=== PATIENT | female | born 1930 | race Caucasian/White ===

== ENCOUNTER 2016-06-27 19:40 | Emergency (ER) | payer MEDICARE, OTHER ==
[2015-07-04 05:56] VITALS: BMI 41.2
[~2016-06-27 19:40] MED LIST: DYAZIDE 37.5/251 CAP PO; DYRENIUM50 MG PO; FOLTX TABLET1 EACH PO; GLUCOPHAGE500 MG PO; HYDROCODONE-APA1 TAB PO; KLOR-CON M2020 MEQ; LEVOXYL75 MCG PO; LISINOPRIL5 MG; MOBIC7.5 MG; NEURONTIN 300300 MG; NOVOLIN 70/30 110 ML; PRAVACHOL20 MG; RESTORIL15 MG PO; TOPROL XL50 MG PO; ZOFRAN ODT4 MG/UDTAB; ZOFRAN ODT4 MG/UDTAB PO
[2016-06-27 21:24] LABS: BASOPHILS 1.1 % (0.0-2.0); EOSINOPHILS 4.2 % (0-7); HEMATOCRIT 42.9 % (36.0-48.0); HEMOGLOBIN 13.6 g/dL (12-16); IMMATURE GRANULOCYTES 0.1 % (0-5); LYMPHOCYTES 20.4 % (15-50); MCHC 31.7 g/dL (31.0-37.0); MCV 94.5 fL (80.0-100.0); MEAN PLATELET VOLUME 10.5 fL (7.4-10.4); MONOCYTES 7.9 % (2-11); NEUTROPHILS 66.3 % (40-80); PLATELET COUNT 236 10x3/uL (130-400); RBC 4.54 10x6/uL (4.00-5.40); RDW 14.9 % (11.5-14.5); WBC 7.6 10x3/uL (4.8-10.8)
[2016-06-27 21:31] LABS: ALBUMIN 3.6 g/dL (3.4-5.0); ANION GAP 11.1 mmol/L (8-16); BILIRUBIN - TOTAL 0.3 mg/dL (0.2-1.3); CALCIUM 9.8 mg/dL (8.5-10.1); CARBON DIOXIDE 29.1 mmol/L (21.0-32.0); CREATININE - SERUM 1.2 mg/dL (0.6-1.3); POTASSIUM - SERUM 4.2 mmol/L (3.5-5.1); PROTEIN - SERUM 7.2 g/dL (6.4-8.2)
[2016-06-27 21:40] LABS: THYROID STIMULATING HORMONE 4.3 uIU/mL (0.36-3.74)
[2016-06-27 22:05] LABS: APPEARANCE CLEAR (CLEAR); BILIRUBIN NEGATIVE (NEGATIVE); COLOR YELLOW (YELLOW); GLUCOSE NEGATIVE (NEGATIVE); KETONE NEGATIVE (NEGATIVE); LEUKOCYTE ESTERASE NEGATIVE (NEGATIVE); NITRITE NEGATIVE (NEGATIVE); PROTEIN NEGATIVE (NEGATIVE); SPECIFIC GRAVITY 1.015 (1.005-1.020); UROBILINOGEN NORMAL (NORMAL)
== END 2016-06-27 22:45 | disposition home or self-care (01) ==
LOC: D.ER 19:40
PROVIDERS: Physician Assistant
DX: R55 Syncope and collapse (principal); R53.1 Weakness; I10 Essential (primary) hypertension; E11.9 Type 2 diabetes mellitus without complications; G62.9 Polyneuropathy, unspecified; R00.1 Bradycardia, unspecified

== ENCOUNTER 2016-08-03 08:40 | Outpatient (CLI) | payer MEDICARE, OTHER ==
[2015-07-04 05:56] VITALS: BMI 41.2
[2016-08-03 09:17] LABS: EOSINOPHILS 1.9 % (0-7); HEMATOCRIT 43.4 % (36.0-48.0); IMMATURE GRANULOCYTES 0.1 % (0-5); LYMPHOCYTES 14.2 % (15-50); MCHC 32.3 g/dL (31.0-37.0); MCV 93.1 fL (80.0-100.0); MEAN PLATELET VOLUME 10.4 fL (7.4-10.4); MONOCYTES 7.5 % (2-11); NEUTROPHILS 75.3 % (40-80); PLATELET COUNT 270 10x3/uL (130-400); RBC 4.66 10x6/uL (4.00-5.40); RDW 14.4 % (11.5-14.5); WBC 7.2 10x3/uL (4.8-10.8)
[2016-08-03 09:36] LABS: ALBUMIN 3.5 g/dL (3.4-5.0); BILIRUBIN - TOTAL 0.47 mg/dL (0.2-1.3); CALCIUM 9.6 mg/dL (8.5-10.1); CREATININE - SERUM 1.1 mg/dL (0.6-1.3); PROTEIN - SERUM 7.6 g/dL (6.4-8.2)
[2016-08-03 09:47] LABS: APPEARANCE CLEAR (CLEAR); BILIRUBIN NEGATIVE (NEGATIVE); COLOR YELLOW (YELLOW); GLUCOSE NEGATIVE (NEGATIVE); KETONE NEGATIVE (NEGATIVE); LEUKOCYTE ESTERASE NEGATIVE (NEGATIVE); NITRITE NEGATIVE (NEGATIVE); PROTEIN TRACE mg/dL (NEGATIVE); UROBILINOGEN NORMAL (NORMAL)
[2016-08-03 09:48] LABS: BACTERIA MANY /hpf (NONE SEEN); EPITHELIAL CELLS 0-5 /hpf (0-5); RED CELLS - URINE 0-5 /hpf (0-5); WHITE CELLS - URINE 0-5 /hpf (0-5)
--- NOTE | 2016-08-03 14:04 | NUR ---
9642 PATIENT FROM GI LAB AFTER RECOVERED. PATIENT MONITORED TOLERATING LIQUIDS.
--- NOTE | 2016-08-03 14:29 | NUR ---
1429 CAKKED IN 2 SCRIPTS TALKED WITH NE PHARMACIST AT [facility] SAULT OMEPRAZOLE AND FAMOTIDINE.
--- NOTE | 2016-08-03 14:31 | NUR ---
1431 IV DCD CATHETER INTACT TOLERATED LIQUIDS WENT OVER DISCHARGE INSTRUCTIONS WITH PATIENT AND FRIEND. INSTRUCTED ON 2 SCRIPTS NO NSAIDS NO DRIVING X 24 HOURS AND TO BE CAUTION WITH NSAIDS X 14 DAYS. ALSO INSTRUCTED TO HAVE LIQUIDS TODAY SOFT DIET TOMORROW AND CALL DR. CUNNINGHAM OFFICE friday FOR ANOTHER SCOPE TIME. VERBALLY UNDERSTANDS.
--- NOTE | 2016-08-03 14:31 | NUR ---
1230 GOT PATIENT FROM ER FOR FOOD BOLUS AND TO OR FOR INTUBATION THAN TO GI LAB FOR RECOVERY AND WTCHED AND TO BE DISCHARGED TO HOME.
--- NOTE | 2016-08-03 14:56 | NUR ---
1456 DISCHARGED TO HOME VIA W/C WITH FRIEND.
--- NOTE | 2016-08-03 15:04 | NUR ---
1500 TO HOME WITH FRIEND VIA W/C.
== END 2016-08-03 15:00 | disposition home or self-care (01) ==
LOC: D.OPS 08:40 → D.ER 08:40 → D.OPS 15:00 → EDSTATUS 15:11
PROVIDERS: Family Medicine
DX: T18.128A Food in esophagus causing other injury, initial encounter (principal); X58.XXXA Exposure to other specified factors, initial encounter; K22.2 Esophageal obstruction; K22.10 Ulcer of esophagus without bleeding; E11.9 Type 2 diabetes mellitus without complications; E07.9 Disorder of thyroid, unspecified; I10 Essential (primary) hypertension; I69.398 Other sequelae of cerebral infarction; R20.2 Paresthesia of skin; G62.9 Polyneuropathy, unspecified; Z99.81 Dependence on supplemental oxygen; Z79.84 Long term (current) use of oral hypoglycemic drugs; Z79.1 Long term (current) use of non-steroidal anti-inflammatories (NSAID); Z79.4 Long term (current) use of insulin; Z79.899 Other long term (current) drug therapy; Z88.5 Allergy status to narcotic agent

== ENCOUNTER 2016-09-09 07:09 | Day surgery (SDC) | payer MEDICARE, OTHER ==
[~2016-09-09] VITALS: Ht 157.5 cm; Wt 99.8 kg
[2016-09-09] MEDS ORDERED: MOBIC7.5 MG PO (08:05)
[2016-09-09] MEDS ORDERED: PEPCID40 MG (08:06)
[2016-09-09 08:11] VITALS: BP 144/73; Ht 157.5 cm; Wt 99.8 kg
[2016-09-09 08:11] LABS: BASOPHILS 0.7 % (0.0-2.0); EOSINOPHILS 3.8 % (0-7); HEMATOCRIT 40.7 % (36.0-48.0); IMMATURE GRANULOCYTES 0.1 % (0-5); MCHC 31.9 g/dL (31.0-37.0); MCV 93.8 fL (80.0-100.0); MONOCYTES 10.4 % (2-11); PLATELET COUNT 250 10x3/uL (130-400); RBC 4.34 10x6/uL (4.00-5.40); RDW 14.4 % (11.5-14.5)
[2016-09-09 08:12] LABS: ANION GAP 12.4 mmol/L (8-16); CALCIUM 9.7 mg/dL (8.5-10.1); CREATININE - SERUM 1.2 mg/dL (0.6-1.3); POTASSIUM - SERUM 4.4 mmol/L (3.5-5.1)
--- NOTE | 2016-09-09 09:10 | NUR ---
0910-DILATE WITH 16-17-18, TO 16 BELGIAN
--- NOTE | 2016-09-09 10:30 | NUR ---
DISCHARGE INSTRUCTIONS REVIEWED WITH PATIENT, DISCHARGED HOME VIA WHEELCHAIR TO PRIVATE VEHICLE WITH FRIEND
--- NOTE | 2016-09-10 10:50 | OP ---
PATIENT NAME: BART LOWRY MEDICAL RECORD: [id number] :30 LOCATION:[facility] ADMISSION DATE: SURGEON: FLORESITA DURBIN DO DATE OF OPERATION: 09/09/2016 PROCEDURE: EGD with biopsies and balloon dilation less than 30 mm. MEDICATIONS: Propofol 110 mg IV per anesthesia. SCOPE: Olympus video gastroscope. FINDINGS: Informed consent was given. The patient was made comfortable with the above medication. After reaching an adequate level of sedation by slow IV push, she was placed on her left side. The endoscope was then advanced under direct visualization through the mouth to the second portion of the duodenum. The upper and middle esophagus appeared normal. In the distal third down to the GE junction, there was some narrowing to the level of the GE junction with a possible Schatzki ring just superior to the GE junction. The narrowing also could be consistent with a process such as achalasia. A 16-18 mm dilating balloon was placed through the scope into this area and dilated up to 18 mm maximum diameter. The maneuver was successful. The scope was advanced into the stomach and retroflexed to view the cardia, where a medium sized sliding hiatal hernia was present. The fundus and body of the stomach appeared normal. The scope was advanced down to the antrum and prepyloric region where the previously visualized ulcers appeared healed. There were no obvious ulcers or erosions present on this examination. Random gastric biopsies were performed to rule out H. pylori and to submit for histology. Scope was advanced through the pylorus into the duodenum where the bulb and second portion of the duodenum appeared normal. There ____ what could be a lipoma in the second portion of the duodenum. The scope could not get in to a favorable position to perform a biopsy. Scope was withdrawn from the patient. The patient tolerated the procedure well and there were no complications. ESTIMATED BLOOD LOSS: Less than 3 cc. IMPRESSION: 1. 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 This was dilated up to 18 mm. 2. Medium size sliding hiatal hernia. 3. 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 PLAN AND RECOMMENDATIONS: 1. Continue omeprazole 40 mg daily and Pepcid 40 mg daily for 1 more month, then discontinue. 2. Barium esophagram to be scheduled regarding the esophageal dysphagia and possible esophageal stenosis. Findings could be consistent with achalasia and I would like to rule this out. 3. Discharge home when recovery parameters are met. 4. Okay to advanced diet as tolerated. The patient was given education on eating slowly and chewing food well. 5. Inform the clinic if swallowing is not better within the next couple of weeks. 6. We will follow up on esophagram studies for determining further recommendations. OPERATIVE REPORT [id number] BART LOWRY TRANSINT:[id number] Voice Confirmation ID: [id number] DOCUMENT ID: [id number] FLORESITA DURIBN DO at 1050 CC: [id number] DICTATION DATE: 09/09/16926 ENTOMOLOGY TEACHER: 09/09/16 1333 [facility] 09/09/16 [id number] [place] [address]
== END 2016-09-09 10:30 | disposition home or self-care (01) ==
LOC: D.OPS 07:09
PROVIDERS: Anesthesiology
DX: R13.10 Dysphagia, unspecified (principal); K44.9 Diaphragmatic hernia without obstruction or gangrene; R10.13 Epigastric pain; K22.2 Esophageal obstruction; G47.30 Sleep apnea, unspecified; E03.9 Hypothyroidism, unspecified; I10 Essential (primary) hypertension; E11.9 Type 2 diabetes mellitus without complications

== ENCOUNTER → 2016-11-27 10:13 | Outpatient (CLI) | payer MEDICARE, OTHER ==
[2016-09-09 08:11] VITALS: BMI 40.3
[~2016-11-27 10:13] MED LIST changes: +MOBIC7.5 MG PO; +PEPCID40 MG
== END | disposition home or self-care (01) ==
LOC: D.RAD 10:13
DX: R13.10 Dysphagia, unspecified (principal); K22.2 Esophageal obstruction

== ENCOUNTER 2016-12-16 07:35 | Day surgery (SDC) | payer MEDICARE, OTHER ==
[2016-12-12 17:16] LABS: BASOPHILS 0.7 % (0-2); EOSINOPHILS 3.4 % (0-7); HEMATOCRIT 39.7 % (36.0-48.0); HEMOGLOBIN 12.9 g/dL (12-16); IMMATURE GRANULOCYTES 0.1 % (0-5); LYMPHOCYTES 22.6 % (15-50); MCH 30.7 pg (26.0-34.0); MCHC 32.5 g/dL (31.0-37.0); MCV 94.5 fL (80.0-100.0); MONOCYTES 8.7 % (2-11); NEUTROPHILS 64.5 % (40-80); PLATELET COUNT 274 10x3/uL (130-400); RDW 13.8 % (11.5-14.5); WBC 6.8 10x3/uL (4.8-10.8)
[2016-12-12 17:24] LABS: APPEARANCE CLEAR (CLEAR); BILIRUBIN NEGATIVE (NEGATIVE); COLOR YELLOW (YELLOW); GLUCOSE NEGATIVE (NEGATIVE); KETONE NEGATIVE (NEGATIVE); LEUKOCYTE ESTERASE TRACE (NEGATIVE); NITRITE POSITIVE (NEGATIVE); PROTEIN NEGATIVE (NEGATIVE); UROBILINOGEN NORMAL (NORMAL)
[2016-12-12 17:28] LABS: BACTERIA MANY /hpf (NONE SEEN); EPITHELIAL CELLS OCC /hpf (0-5); RED CELLS - URINE RARE /hpf (0-5); WHITE CELLS - URINE 0-5 /hpf (0-5)
[2016-12-12 17:33] LABS: ANION GAP 10.9 mmol/L (8-16); CALCIUM 9.5 mg/dL (8.5-10.1); CARBON DIOXIDE 30.1 mmol/L (21.0-32.0); CREATININE - SERUM 1.1 mg/dL (0.6-1.3)
[~2016-12-16] VITALS: Ht 157.5 cm; Wt 99.8 kg
--- NOTE | ~2016-12-16 | OP ---
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 PROCEDURE: L4-L5 laminotomy and foraminotomy on the left. SURGEON: Steven Sams MD. ESTIMATED BLOOD LOSS: 50 cc. PRINT SHOP STENOGRAPHER: None. SUMMARY: The patient was taken to the operating room and after an adequate level of general anesthetic, was placed in the prone position on Christopher frame. After prepping and draping, an incision was made to the left of the L4-L5 spinous processes using a 10 blade after infiltrating with 1:400,000 of epinephrine and 0.5% lidocaine. Dissection was then carried out down to the interlaminar space with Metzenbaum scissors and then a METRx operating channel was introduced over a system of dilators using a 7 cm channel attached to the operating table with a flexible cordoba. Following this, the medial aspect of the facet joint was removed with a Midas-Donnell drill. The neural foramen was enlarged with a Kerrison and Cloward punch. Ligamentum flavum was removed and the overlying lamina of L4 and L5 was partially removed thoroughly decompressing the spinal canal on this side. When this was completed and the nerve root exit was inspected and the ventral aspect of the traversing nerve root was inspected to be sure that no herniated disc fragment was present, the wound was irrigated with an antibiotic solution and the closure was carried out with 2-0 Dexon on the fascia, 3-0 Dexon on the subcutaneous tissue and a subcuticular stitch with 4-0 Dexon was used on the skin. The patient was then sealed with Dermabond closure and the patient was taken to recovery in stable condition. TRANSINT:[id number] Voice Confirmation ID: [id number] DOCUMENT ID: [id number] STEVEN SAMS MD CC: [id number] DICTATION DATE: 12/16/16 1544 VIDEO GAME PRODUCER: 12/16/167 [facility] 12/16/16 [place] [address]
[~2016-12-16 07:35] MED LIST changes: -KLOR-CON M2020 MEQ; +KLOR-CON M2020 MEQ PO; +METOPROLOL TART50 MG PO; -NEURONTIN 300300 MG; +NEURONTIN 300300 MG PO; -NOVOLIN 70/30 110 ML; +NOVOLIN 70/30 110 ML SC; -PEPCID40 MG; +PEPCID40 MG PO
[2016-12-16 12:47] VITALS: BP 130/57; Ht 157.5 cm; Wt 99.8 kg
[2016-12-16] MEDS ORDERED: NOVOLIN 70/30 110 ML SC (12:49)
--- NOTE | 2016-12-16 16:57 | NUR ---
1630 WAKING UP RESP EVEN AND NONLABORED. O2 2LN/C 94 R/A 84% SO PUT ON 2 L N/C. PAIN A 3. BACK INCISION NO BLEEDING OPEN AND DERMABONDED. TAKING IN ICE CHIPS. FULL LIQUIDS ORDERED. FAMILY PRESENT AND C/L IN REACH.
--- NOTE | 2016-12-16 17:07 | NUR ---
1700 FULL LIQUIDS SERVED, O2 TO RA SAT 93 %. COUGHING AND DEEP BREATHS TAKEN.
--- NOTE | 2016-12-16 18:25 | NUR ---
1735 SAT 94 % ON ROOM AIR. RESP EVEN AND NONLABORED. BACK SITE NO DRAINAGE OR REDNESS OR SWELING.
--- NOTE | 2016-12-16 18:26 | NUR ---
[address] WEEMS AND CRITERIA FOR DISCHARGE MET. TOLD HAS ULTRAM AT HOME. ORDER TO BE DISCHARGED HOME GIVEN.
--- NOTE | 2016-12-16 18:26 | NUR ---
1740 UP AND AMBULATED NO NUMBNESS OR TINGLING OR PAIN.
--- NOTE | 2016-12-16 18:26 | NUR ---
1745 BEEPED MIESHA MEDINA PRACTICIONER NO ANSWER.
--- NOTE | 2016-12-16 18:27 | NUR ---
1805 IV DCD CATHETER INTACT. DISCHARGE INSTRUCTIONS GIVEN AND ASSISTED WITH DRESSING.
--- NOTE | 2016-12-16 18:27 | NUR ---
1815 TO HOME VIA W/C WITH FRIEND.
== END 2016-12-16 18:15 | disposition home or self-care (01) ==
LOC: D.OPS 07:35 → D.PAN 12:15 → D.OPS 12:30 → D.PAN 13:15 → D.OPS 18:15
PROVIDERS: Neurological Surgery
DX: M48.06 Spinal stenosis, lumbar region (principal); Z01.812 Encounter for preprocedural laboratory examination

== ENCOUNTER 2016-12-18 09:29 | Emergency (ER) | payer MEDICARE, OTHER ==
[2016-12-16 12:47] VITALS: BMI 40.3
[2016-12-18 10:34] LABS: HEMATOCRIT 37.9 % (36.0-48.0); HEMOGLOBIN 12.3 g/dL (12-16); LYMPHOCYTES 14.1 % (15-50); MCH 30.3 pg (26.0-34.0); MCHC 32.5 g/dL (31.0-37.0); MCV 93.3 fL (80.0-100.0); MEAN PLATELET VOLUME 9.7 fL (7.4-10.4); NEUTROPHILS 78.8 % (40-80); PLATELET COUNT 223 10x3/uL (130-400); RBC 4.06 10x6/uL (4.00-5.40); RDW 13.1 % (11.5-14.5); WBC 9.4 10x3/uL (4.8-10.8)
[2016-12-18 10:35] LABS: ANION GAP 14.7 mmol/L (8-16); CREATININE - SERUM 1.1 mg/dL (0.6-1.3); POTASSIUM - SERUM 4.7 mmol/L (3.5-5.1)
[2016-12-18 10:37] LABS: APPEARANCE HAZY (CLEAR); BILIRUBIN NEGATIVE (NEGATIVE); COLOR YELLOW (YELLOW); GLUCOSE NEGATIVE (NEGATIVE); KETONE NEGATIVE (NEGATIVE); LEUKOCYTE ESTERASE NEGATIVE (NEGATIVE); NITRITE NEGATIVE (NEGATIVE); PROTEIN NEGATIVE (NEGATIVE); UROBILINOGEN NORMAL (NORMAL)
== END 2016-12-18 11:05 | disposition home or self-care (01) ==
LOC: D.ER 09:29
PROVIDERS: Emergency Medicine
DX: G89.18 Other acute postprocedural pain (principal); E11.9 Type 2 diabetes mellitus without complications; I10 Essential (primary) hypertension

== ENCOUNTER 2017-12-05 16:19 | Emergency (ER) | payer MEDICARE ==
[~2017-12-05] VITALS: Ht 157.5 cm; Wt 81.6 kg
[2017-12-05 16:30] VITALS: Ht 157.5 cm; Wt 81.6 kg
[2017-12-05 18:22] LABS: EOSINOPHILS 4.4 % (0-7); HEMOGLOBIN 13.4 g/dL (12-16); IMMATURE GRANULOCYTES 0.3 % (0-5); LYMPHOCYTES 25.7 % (15-50); MCH 31.3 pg (26.0-34.0); MCHC 32.7 g/dL (31.0-37.0); MCV 95.8 fL (80.0-100.0); MONOCYTES 9.9 % (2-11); NEUTROPHILS 58.7 % (40-80); PLATELET COUNT 246 10x3/uL (130-400); RBC 4.28 10x6/uL (4.00-5.40); RDW 14.1 % (11.5-14.5); WBC 7.3 10x3/uL (4.8-10.8)
[2017-12-05 18:51] LABS: ALBUMIN 3.6 g/dL (3.4-5.0); ALKALINE PHOSPHATASE 81 U/L (46-116); ALT (SGPT) 15 U/L (10-68); CALC OSMOLALITY 280 mosm/kg (275-300); CALCIUM 9.1 mg/dL (8.5-10.1); CARBON DIOXIDE 28.9 mmol/L (21.0-32.0); CHLORIDE - SERUM 104 mmol/L (98-107); CREATININE - SERUM 1.3 mg/dL (0.6-1.3); GLUCOSE 123 mg/dL (74-106); POTASSIUM - SERUM 3.9 mmol/L (3.5-5.1); PROTEIN - SERUM 7.6 g/dL (6.4-8.2); SODIUM 139 mmol/L (136-145); UREA NITROGEN 19 mg/dL (7-18); eGFR NON AFRICAN AMERICAN 41 mL/min (90-120)
[2017-12-05 18:54] LABS: APPEARANCE CLEAR (CLEAR); BILIRUBIN NEGATIVE (NEGATIVE); COLOR YELLOW (YELLOW); GLUCOSE NEGATIVE (NEGATIVE); KETONE NEGATIVE (NEGATIVE); NITRITE NEGATIVE (NEGATIVE); PROTEIN NEGATIVE (NEGATIVE); UROBILINOGEN NORMAL (NORMAL)
[2017-12-05 18:55] LABS: BACTERIA MANY /hpf (NONE SEEN); EPITHELIAL CELLS 0-5 /hpf (0-5); RED CELLS - URINE 0-5 /hpf (0-5)
[2017-12-05 18:58] LABS: CKMB 2.2 U/L (0.0-3.6); CREATINE KINASE 101 UL (21-215); TROPONIN-I < 0.017 ng/mL (0.000-0.060)
[2017-12-05] MEDS ORDERED: KEFLEX500 MG PO (19:42)
[2017-12-05 20:06] VITALS: BP 137/64
== END 2017-12-05 20:18 | disposition home or self-care (01) ==
LOC: D.ER 16:19
PROVIDERS: Emergency Medicine
DX: K22.4 Dyskinesia of esophagus (principal); N39.0 Urinary tract infection, site not specified; M54.6 Pain in thoracic spine; Z86.73 Personal history of transient ischemic attack (TIA), and cerebral infarction without residual deficits; E11.9 Type 2 diabetes mellitus without complications; I10 Essential (primary) hypertension; R00.1 Bradycardia, unspecified

== ENCOUNTER 2018-05-20 10:34 | Emergency (ER) | payer MEDICARE ==
[~2018-05-20] VITALS: Ht 157.5 cm; Wt 96.8 kg
[~2018-05-20 10:34] MED LIST changes: +KEFLEX500 MG PO
[2018-05-20 10:40] VITALS: Ht 157.5 cm; Wt 96.8 kg
[2018-05-20 12:35] LABS: BASOPHILS 0.2 % (0-2); EOSINOPHILS 0.6 % (0-7); HEMOGLOBIN 14.5 g/dL (12-16); IMMATURE GRANULOCYTES 0.3 % (0-5); LYMPHOCYTES 15.1 % (15-50); MCH 31.3 pg (26.0-34.0); MCHC 33.7 g/dL (31.0-37.0); MCV 92.7 fL (80.0-100.0); MONOCYTES 10.8 % (2-11); PLATELET COUNT 226 10x3/uL (130-400); RBC 4.64 10x6/uL (4.00-5.40); RDW 14.3 % (11.5-14.5); WBC 6.6 10x3/uL (4.8-10.8)
[2018-05-20 12:45] LABS: ALBUMIN 3.5 g/dL (3.4-5.0); ALKALINE PHOSPHATASE 69 U/L (46-116); ALT (SGPT) 25 U/L (10-68); BILIRUBIN - TOTAL 0.28 mg/dL (0.2-1.3); CALC OSMOLALITY 283 mosm/kg (275-300); CALCIUM 9.4 mg/dL (8.5-10.1); CARBON DIOXIDE 27.8 mmol/L (21.0-32.0); CHLORIDE - SERUM 100 mmol/L (98-107); CREATININE - SERUM 1.3 mg/dL (0.6-1.3); POTASSIUM - SERUM 3.5 mmol/L (3.5-5.1); PROTEIN - SERUM 8.1 g/dL (6.4-8.2); SODIUM 138 mmol/L (136-145); UREA NITROGEN 22 mg/dL (7-18); eGFR NON AFRICAN AMERICAN 41 mL/min (90-120)
[2018-05-20 12:46] LABS: GLUCOSE 192 mg/dL (74-106)
[2018-05-20 12:47] LABS: LIPASE 136 U/L (73-393); TROPONIN-I < 0.017 ng/mL (0.000-0.060)
[2018-05-20] MEDS ORDERED: ZOFRAN ODT4 MG/UDTAB PO (13:13)
[2018-05-20 13:32] VITALS: BP 135/75
== END 2018-05-20 13:33 | disposition home or self-care (01) ==
LOC: D.ER 10:34
PROVIDERS: Family Medicine
DX: R11.10 Vomiting, unspecified (principal); R19.7 Diarrhea, unspecified; Z86.73 Personal history of transient ischemic attack (TIA), and cerebral infarction without residual deficits; E11.9 Type 2 diabetes mellitus without complications; I10 Essential (primary) hypertension

== ENCOUNTER → 2018-10-07 10:30 | Outpatient (CLI) | payer MEDICARE ==
[2018-05-20 10:40] VITALS: BMI 39.0
== END | disposition home or self-care (01) ==
LOC: D.US 10:30
PROVIDERS: ATTEND Family Medicine
DX: M79.604 Pain in right leg (principal); R74.8 Abnormal levels of other serum enzymes